=== PATIENT | male | born 1945 | race Asian ===

== ENCOUNTER 2022-02-09 12:41 | Emergency (ER) | payer MEDICARE, MEDICAID ==
[~2022-02-09] VITALS: Ht 162.6 cm; Wt 58.6 kg
[2022-02-09] MEDS ORDERED: PRED10TA23 PO (15:08)
[2022-02-09 15:21] VITALS: BP 171/97
== END 2022-02-09 15:22 | disposition home or self-care (01) ==
LOC: ER 12:41
DX: R21 Rash and other nonspecific skin eruption (principal); Z88.0 Allergy status to penicillin; Z79.899 Other long term (current) drug therapy
CPT/HCPCS: 99283

== ENCOUNTER 2023-11-05 20:15 | Inpatient (IN) | payer MEDICARE, MEDICAID ==
[~2023-11-05] VITALS: Ht 154.9 cm; Wt 60.3 kg
[~2023-11-05 20:15] MED LIST: ALLO300T8 PO; ATOR40TA71 PO; NAPR-996 PO; OMEP40CA21 PO; VALS1TAB8 PO
[2023-11-05] MEDS ORDERED: iohexol 350MG/ML 100ml bottle IV ONE (20:29)
[2023-11-05 20:46] LABS: BASOPHILS # (AUTO) 0.1 X10'3 (0-0.2); BASOPHILS % (AUTO) 0.9 % (0-1); EOSINOPHILS # (AUTO) 0.3 X10'3 (0-0.9); EOSINOPHILS % (AUTO) 4.3 % (0-6); HEMATOCRIT 36.7 % (42.0-52.0); HEMOGLOBIN 12.5 g/dl (14.0-17.9); LYMPHOCYTES % (AUTO) 28.4 % (21-51); MEAN CORPUSCULAR HEMOGLOBIN 29.7 PG (27.0-31.0); MEAN CORPUSCULAR VOLUME 87.3 FL (78-98); MEAN PLATELET VOLUME 6.7 FL (7.4-10.4); MONOCYTES # (AUTO) 0.7 X10'3 (0-0.9); MONOCYTES % (AUTO) 10.2 % (2-12); NEUTROPHILS # (AUTO) 3.9 X10'3 (1.8-7.7); NEUTROPHILS % (AUTO) 56.2 % (42-75); PLATELET COUNT 267 X10'3 (140-440); RED CELL DISTRIBUTION WIDTH 13.4 % (11.5-14.5); WHITE BLOOD COUNT 6.9 X10'3 (4.5-11.0)
[2023-11-05] MEDS ORDERED: temazepam 15mg capsule PO PRN (21:00)
[2023-11-05 21:03] LABS: APTT 34 SECONDS (22-32); PROTHROMBIN TIME 10.6 SECONDS (9.0-12.0)
[2023-11-05 21:07] LABS: ALANINE AMINOTRANSFERASE 22 U/L (12-78); ALBUMIN 3.1 G/DL (3.4-5.0); ALBUMIN/GLOBULIN RATIO 0.7 (1.1-1.5); ALKALINE PHOSPHATASE 136 IU/L (46-116); ANION GAP 4 (8-16); ASPARTATE AMINO TRANSFERASE 24 U/L (10-37); BILIRUBIN,TOTAL 0.4 MG/DL (0.1-1.0); BLOOD UREA NITROGEN 29 MG/DL (7-18); BUN/CREATININE RATIO 19.3 (10.0-20.0); CHLORIDE 103 MMOL/L (99-107); GLUCOSE 225 MG/DL (70-104); POTASSIUM 4.4 MMOL/L (3.5-5.1); SODIUM 138 MMOL/L (135-145); TOTAL CARBON DIOXIDE 30.6 MMOL/L (24-32); TOTAL PROTEIN 7.6 G/DL (6.4-8.2); eCRCL 29 ML/MIN; eGFR 45 ML/MIN
[2023-11-05] MEDS: labetalol 20mg/4ml (5mg/ml) syringe IV ONE (21:35)
[2023-11-05] MEDS: labetalol 100mg tablet PO SCH (21:36)
[2023-11-05] MEDS ORDERED: potassium Cl 40MEQ/1/2NS 520ml 520 ML IV PRN (22:50)
[2023-11-05] MEDS ORDERED: potassium Cl 20 mEq SR tablet PO PRN ×2 (22:50)
[2023-11-05] MEDS ORDERED: mag hydrox/Alum hydrox/simeth 30ml oral suspension PO PRN (22:50)
[2023-11-05] MEDS ORDERED: ondansetron/PF 4mg/2ml inj IV PRN (22:50)
[2023-11-05] MEDS ORDERED: magnesium hydroxide 30ml (MOM) UD suspension PO PRN (22:50)
[2023-11-05] MEDS ORDERED: acetaminophen 325mg tablet PO PRN (22:50)
[2023-11-05] MEDS ORDERED: magnesium 4gm in 100ml NS 100 ML IV PRN (22:50)
[2023-11-05] MEDS ORDERED: magnesium Cl slow-release 64mg tablet PO PRN (22:50)
[2023-11-05] MEDS: atorvastatin 20mg tablet PO SCH (23:02)
[2023-11-05] MEDS ORDERED: AMLO5TAB16 PO (23:06)
[2023-11-06] MEDS: amLODIPine 5mg tablet PO ONE (00:53)
[2023-11-06] MEDS: pantoprazole 40mg Tablet.DR PO SCH (08:27)
[2023-11-06] MEDS: aspirin 81mg tab.chew PO SCH (08:27)
[2023-11-06] MEDS: docusate sod 100mg capsule PO SCH (08:27)
[2023-11-06] MEDS: losartan 50mg tablet PO SCH (08:27)
[2023-11-06] MEDS: HYDROchlorothiazide 25mg tablet PO SCH (08:27)
[2023-11-06] MEDS: amLODIPine 5mg tablet PO SCH (08:28)
[2023-11-06 09:10] LABS: BASOPHILS # (AUTO) 0.1 X10'3 (0-0.2); EOSINOPHILS # (AUTO) 0.3 X10'3 (0-0.9); EOSINOPHILS % (AUTO) 4.9 % (0-6); HEMATOCRIT 34.4 % (42.0-52.0); HEMOGLOBIN 11.7 g/dl (14.0-17.9); LYMPHOCYTES # (AUTO) 1.4 X10'3 (1.1-4.8); LYMPHOCYTES % (AUTO) 20.5 % (21-51); MEAN CORPUSCULAR HEMOGLOBIN 29.7 PG (27.0-31.0); MEAN CORPUSCULAR HGB CONC 34.1 g/dL (33.0-36.5); MEAN PLATELET VOLUME 6.7 FL (7.4-10.4); MONOCYTES # (AUTO) 0.8 X10'3 (0-0.9); MONOCYTES % (AUTO) 10.8 % (2-12); NEUTROPHILS # (AUTO) 4.4 X10'3 (1.8-7.7); NEUTROPHILS % (AUTO) 62.8 % (42-75); PLATELET COUNT 263 X10'3 (140-440); RED BLOOD COUNT 3.96 X10'6 (4.70-6.10); RED CELL DISTRIBUTION WIDTH 13.3 % (11.5-14.5); WHITE BLOOD COUNT 7.1 X10'3 (4.5-11.0)
[2023-11-06 09:42] LABS: ALBUMIN 2.7 G/DL (3.4-5.0); ANION GAP 7 (8-16); BLOOD UREA NITROGEN 29 MG/DL (7-18); CALCIUM 8.3 MG/DL (8.5-10.1); CHLORIDE 107 MMOL/L (99-107); CREATININE 1.53 MG/DL (0.60-1.10); GLUCOSE 101 MG/DL (70-104); POTASSIUM 4.4 MMOL/L (3.5-5.1); SODIUM 141 MMOL/L (135-145); TOTAL CARBON DIOXIDE 27.1 MMOL/L (24-32); eCRCL 28 ML/MIN; eGFR 44 ML/MIN
[2023-11-06 16:22] VITALS: BP 128/66; PULSE 73; RESP 16; TEMP 97.5; O2SAT 98
[2023-11-06 18:00] VITALS: BP 135/67; PULSE 67; RESP 14; TEMP 98.4; O2SAT 97
[2023-11-06 20:00] VITALS: RESP 15; O2SAT 97
[2023-11-06 20:56] VITALS: BP_SYST 152; BP_SYST 153; BP_DIAS 83; BP_DIAS 84; PULSE 73; PULSE 75
[2023-11-06] MEDS ORDERED: labetalol 100mg tablet PO ONE (21:11)
[2023-11-06 21:40] VITALS: BP 153/83; PULSE 73; RESP 16; TEMP 97.9; O2SAT 95
[2023-11-07 02:17] VITALS: BP 108/58; PULSE 81; RESP 16; TEMP 97.7; O2SAT 94
[2023-11-07 06:00] VITALS: BP 110/61; PULSE 75; RESP 16; TEMP 98.1; O2SAT 95
[2023-11-07 07:51] LABS: BASOPHILS # (AUTO) 0.1 X10'3 (0-0.2); EOSINOPHILS # (AUTO) 0.3 X10'3 (0-0.9); EOSINOPHILS % (AUTO) 5.1 % (0-6); HEMATOCRIT 35.3 % (42.0-52.0); HEMOGLOBIN 11.9 g/dl (14.0-17.9); LYMPHOCYTES # (AUTO) 1.4 X10'3 (1.1-4.8); LYMPHOCYTES % (AUTO) 23.2 % (21-51); MEAN CORPUSCULAR HEMOGLOBIN 29.4 PG (27.0-31.0); MEAN CORPUSCULAR HGB CONC 33.7 g/dL (33.0-36.5); MEAN CORPUSCULAR VOLUME 87.2 FL (78-98); MEAN PLATELET VOLUME 6.6 FL (7.4-10.4); MONOCYTES # (AUTO) 0.7 X10'3 (0-0.9); MONOCYTES % (AUTO) 11.6 % (2-12); NEUTROPHILS # (AUTO) 3.5 X10'3 (1.8-7.7); NEUTROPHILS % (AUTO) 59.1 % (42-75); PLATELET COUNT 271 X10'3 (140-440); RED BLOOD COUNT 4.05 X10'6 (4.70-6.10); RED CELL DISTRIBUTION WIDTH 13.4 % (11.5-14.5); WHITE BLOOD COUNT 5.9 X10'3 (4.5-11.0)
[2023-11-07 08:00] VITALS: RESP 16; O2SAT 95
[2023-11-07] MEDS ORDERED: ASPI81TA53 PO (08:11)
[2023-11-07 08:12] LABS: ALBUMIN 2.6 G/DL (3.4-5.0); ANION GAP 5 (8-16); BLOOD UREA NITROGEN 28 MG/DL (7-18); BUN/CREATININE RATIO 17.5 (10.0-20.0); CALCIUM 8.1 MG/DL (8.5-10.1); CHLORIDE 107 MMOL/L (99-107); GLUCOSE 103 MG/DL (70-104); LDL CHOLESTEROL 75 MG/DL (50-100); POTASSIUM 4.3 MMOL/L (3.5-5.1); SODIUM 140 MMOL/L (135-145); TOTAL CARBON DIOXIDE 28.4 MMOL/L (24-32); eCRCL 27 ML/MIN; eGFR 42 ML/MIN
[2023-11-07 10:00] VITALS: BP 133/76; PULSE 67; RESP 14; TEMP 98.5; O2SAT 94
== END 2023-11-07 15:55 | disposition home or self-care (01) | DRG 305 ==
LOC: ER 20:15 → ED HOLD 22:54 → ORTHO 4S 11-06 16:13
PROVIDERS: ADMIT Surgery; ATTEND Family Medicine
DX: I16.1 Hypertensive emergency (principal); N17.9 Acute kidney failure, unspecified; J45.909 Unspecified asthma, uncomplicated; E78.00 Pure hypercholesterolemia, unspecified; M10.9 Gout, unspecified; R20.2 Paresthesia of skin; R20.0 Anesthesia of skin; I10 Essential (primary) hypertension; Z87.891 Personal history of nicotine dependence; Z88.0 Allergy status to penicillin; Z79.899 Other long term (current) drug therapy
CPT/HCPCS: 36415; 70450; 70551; 71045; 80048; 80053; 82948; 83721; 84484; 85025; 85610; 85730; 93005; 93306; 99285; G0378; J3490; Q9967